=== PATIENT | male | born 1995 | race African-American/Black ===

== ENCOUNTER 2016-12-13 21:27 | Emergency (ER) | payer OTHER ==
[2016-12-13] MEDS ORDERED: ONDANSETRON 4MG/2ML VIAL (J2405) As Ordered ONE (22:18)
[2016-12-13] MEDS ORDERED: ONDANSETRON 4 MG ORAL DISINTEGRATING TAB (S0181) As Ordered ONE (23:14)
--- NOTE | 2016-12-13 23:26 | EDDOCDS ---
Nurse's Notes [facility] Name: Gustavo Ely Age: 21 yrs Sex: Male : 1995 Arrival Date: 12/13/2016 Time: 21:27 Bed 12 Private MD: GUILLERMINA REDDING Diagnosis: Other viral enteritis Presentation: 12/13 21:32 Presenting complaint: Patient states: diarrhea/vomiting since this evening after rs3 dinner. diarrhea x 7, vomiting x 3. Adult Sepsis Screening: The patient does not have new or worsening altered mentation. Patient's respiratory rate is less than 22. Systolic blood pressure is greater than 100. Patient has a qSOFA score of 0- Negative Sepsis Screen. Suicide/Homicide risk assessment- the patient denies having any suicidal and/or homicidal ideations and does not present with any other emotional, behavioral or mental health complaints. Status: The patient is a dependent. Transition of care: patient was not received from another setting of care. 21:32 Acuity: MARYLOU Level 3 rs3 21:32 Method Of Arrival: Walkin/Carried/Asstd rs3 Triage Assessment: 21:34 General: Appears in no apparent distress. Pain: Location: abdomen. Pt Declines HIV rs3 testing. GI: Reports diarrhea, nausea, vomiting. Historical: - Allergies: no known allergies; - Home Meds: 1. none - PMHx: none; - PSHx: none; - The history from nurses notes was reviewed: and I agree with what is documented. - Social history: Smoking status: Patient states was never smoker of tobacco. No barriers to communication noted, The patient speaks fluent Persian. - : The pt / caregiver states he / she is not on anticoagulants. Home medication list is obtained from the patient. - Hospitalizations: : No recent hospitalization is reported. - Exposure Risk Screening:: None identified. - Immunization history:: All immunizations up-to-date. - Family history: Not pertinent. - Social history:: the patient is a non-smoker, the patient does not drink alcohol. Screenin:46 Screening information is obtained from the patient. Fall risk: No risks identified. tm5 Assistance ADL's: requires no assistance with activities of daily living. Abuse/DV Screen: The patient / caregiver reports he/she is: not in a situation that causes fear, pain or injury. Nutritional screening: No deficits noted. Advance Directives: There is no active DNR order. home support is adequate. Assessment: 21:47 General: Appears in no apparent distress, Behavior is appropriate for age, cooperative. tm5 Pain: Location: abdomen Pain currently is 5 out of 10 on a pain scale. Quality of pain is described as crampy. Neurological: Level of Consciousness is awake, alert, Oriented to person, place, time. Respiratory: Airway is patent Respiratory effort is even, unlabored, Respiratory pattern is regular, symmetrical, Breath sounds are clear bilaterally. GI: Abdomen is flat, non- distended Stools are reported to be diarrhea. Bowel sounds present X 4 quads. Abd is soft and non tender X 4 quads. Reports diarrhea, nausea, vomiting, since after dinner tonight. : No deficits noted. Derm: Skin is pink, warm & dry. 23:22 Reassessment: Patient appears in no apparent distress at this time. Patient states tm5 feeling better. Patient states symptoms have improved. pt states that he is feeling much better after IV fluids & nausea medications . Vital Signs: 21:30 BP 122 / 57; Pulse 80; Resp 18; Temp 97.7(O); Pulse Ox 100% on R/A; Weight 74.84 kg ct3 (R); Height 5 ft. 10 in. (177.80 cm) (R); Pain 7/10; 23:22 BP 188 / 56; Pulse 78; Resp 18; Temp 98.0(O); Pulse Ox 98% on R/A; Pain 0/10; tm5 21:30 Body Mass Index 23.67 (74.84 kg, 177.80 cm) ct3 Vitals: 21:30 Log In Time: December 13, 2016 at 21:28. ct3 ED Course: 21:28 Patient visited by Hortencia Cano PCA. ct3 21:28 Patient moved to Waiting ct3 21:30 [facility], GUILLERMINA is Private Physician. ct3 21:30 Patient moved to Pre RCE ct3 21:34 Triage Initiated rs3 21:41 Patient moved to Triage 3 ar3 21:43 Jessi Lafleur,RN is Primary Nurse. ttb 21:43 Souleymane Baltazar MD is Attending Physician. pc 21:43 Patient moved to 12 ttb 21:46 Patient visited by Dayna Finley RN. tm5 21:47 Awaiting ED physician evaluation. tm5 22:01 Patient visited by Dayna Finley RN. tm5 22:05 ED physician to see patient. tm5 22:06 Patient visited by Souleymane Baltazar MD. pc 22:17 Inserted saline lock: 20 gauge in right antecubital area The patient tolerated the tm5 procedure well. 22:46 Primary Nurse role handed off by Jessi Lafleur RN ar3 22:53 Patient visited by Dayna Finley RN. tm5 23:04 [facility] is Referral Physician. pc 23:22 Patient visited by Dayna Finley RN. tm5 23:22 The patient / caregiver is instructed regarding the plan of care and ED course. tm5 23:22 Discontinued lock intact, bleeding controlled, pressure dressing applied, No tm5 redness/swelling at site. No procedures done that require assistance. Administered Medications: 22:21 Drug: NS 0.9% 1000 ml [sodium chloride 0.9 % intravenous solution] Route: IV; Rate: tm5 bolus; Site: right antecubital; 23:05 Follow up: IV Status: Completed infusion; IV Intake: 1000ml tm5 22:21 Drug: Ondansetron 4 mg [ondansetron HCl 2 mg/mL intravenous solution (2 mL)] Route: tm5 IVP; Site: right antecubital; 22:53 Follow up: Response: Nausea is resolved; No Adverse Reaction tm5 23:25 Drug: Ondansetron ODT 4 mg [ondansetron 4 mg disintegrating tablet (1 tabs)] {Note: tm5 provided to pt for at home use.} Route: PO; Intake: 23:05 IV: 1000.00ml; Total: 1000.00ml. tm5 Order Results: There are currently no results for this order. Outcome: 23:05 Discharge ordered by Provider. pc 23:22 Discharge Assessment: Patient awake, alert and oriented x 3. No cognitive and/or tm5 functional deficits noted. Patient verbalized understanding of disposition instructions. patient administered narcotics - no. The following High Risk Discharge criteria are identified: None. Discharged to home ambulatory. Condition: good Condition: stable Condition: improved. Discharge instructions given to patient, Instructed on discharge instructions, follow up and referral plans. medication usage, Demonstrated understanding of instructions, medications, Pt was receptive of discharge instructions/ teaching. Prescriptions given X 1. No special radiology studies were completed. Property :Personal belongings accompany Pt. 23:25 Patient left the ED. tm5 Signatures: Souleymane Baltazar MD MD pc Soosairaj, Rosemary,RN RN rs3 Jelena Olivera, SCOOP FILLER SCOOP FILLER ar3 Cano, Hortencia, SCOOP FILLER SCOOP FILLER ct3 Christina Quesada RN RN ttb Dayna FinleyRN RN tm5 MTDD
--- NOTE | 2016-12-13 23:26 | EDDOCDS ---
Physician Documentation [facility] Name: Gustavo Ely Age: 21 yrs Sex: Male : 1995 Arrival Date: 12/13/2016 Time: 21:27 Bed 12 Private MD: GUILLERMINA REDDING Disposition: 12/13 23:03 Critical Care: Critical care not applicable. pc Disposition: 12/13/16 23:05 Discharged to Home/Self Care. Impression: Other viral enteritis. - Condition is Stable. - Discharge Instructions: Clear Liquid Diet, Viral Gastroenteritis. - Prescriptions for ZOFRAN ODT 4 mg - dissolve 1 tablet by ORAL route 4 times per day As needed do not chew, do not swallow whole; 10 tablet. - Medication Reconciliation, Local Pharmacy Hours form. - Follow up: Judy Casillas [facility]; When: Tomorrow; Reason: Recheck today's complaints, Continuance of care. - Problem is new. - Symptoms have improved. HPI: 22:07 This 21 yrs old Male presents to ER via Walkin/Carried/Asstd with pc complaints of Diarrhea. 22:07 The history is obtained from the patient. He developed n/v/d about 3 hours ago. He is pc unable to keep anything down, has body aches but no fevers. He denies sick household contacts, denies suspect food ingestion, denies recent travel. The patient has not experienced similar symptoms in the past. The patient has not recently seen a physician. Historical: - Allergies: no known allergies; - Home Meds: 1. none - PMHx: none; - PSHx: none; - The history from nurses notes was reviewed: and I agree with what is documented. - Social history: Smoking status: Patient states was never smoker of tobacco. No barriers to communication noted, The patient speaks fluent Croatian. - : The pt / caregiver states he / she is not on anticoagulants. Home medication list is obtained from the patient. - Hospitalizations: : No recent hospitalization is reported. - Exposure Risk Screening:: None identified. - Immunization history:: All immunizations up-to-date. - Family history: Not pertinent. - Social history:: the patient is a non-smoker, the patient does not drink alcohol. ROS: 22:07 All systems are negative except as listed. pc Exam: 22:07 General Appearance: no acute distress, alert. pc 22:07 EENT: normal eye inspection, ears, nose and throat normal, mucous membranes dry. 22:07 Neck: The exam reveals no acute abnormalities. ROM is normal and painless. No nuchal rigidity is noted.. 22:07 Respiratory: no respiratory distress, normal breath sounds. 22:07 CVS: regular rhythm, normal S1 and S2, no murmurs, strong peripheral pulses, the patient is tachycardic, at 95 bpm. 22:07 Abdomen: soft, non-tender, no organomegaly, bowel sounds hyperactive. 22:07 Back: normal inspection. 22:07 : bladder is non-distended, non-tender. 22:07 Skin: skin color is normal, warm, dry. 22:07 Extremities: The extremities have a grossly normal appearance, are non-tender, without acute ROM abnormalities. 22:07 Neuro: oriented x 3, cranial nerves normal as tested, no motor deficits, no sensory deficits. 22:07 Psych: normal mood. Vital Signs: 21:30 BP 122 / 57; Pulse 80; Resp 18; Temp 97.7(O); Pulse Ox 100% on R/A; Weight 74.84 kg / ct3 164.99 lbs (R); Height 5 ft. 10 in. (177.80 cm) (R); Pain 7/10; 23:22 BP 188 / 56; Pulse 78; Resp 18; Temp 98.0(O); Pulse Ox 98% on R/A; Pain 0/10; tm5 21:30 Body Mass Index 23.67 (74.84 kg, 177.80 cm) ct3 MDM: 22:06 IV Saline Lock ordered. pc 22:06 NS 0.9% 1000 ml IV at bolus once ordered. pc 22:06 Ondansetron 4 mg IVP once ordered. pc 22:07 Differential Diagnosis: VGE, dehydration. Plan: IVF, meds. pc 23:03 Data reviewed: old medical records, vital signs, nurses notes. Test interpretation: pc none. The patient has been re-examined and re-evaluated. The patient's symptoms have markedly improved after treatment. Disposition: The historical points, examination findings, and any diagnostic results supporting the provided diagnosis, were discussed with the patient or legal guardian. The need for outpatient follow up with the provider listed on their discharge instructions was discussed. They were encouraged to return to [facility], or the nearest ED, if symptoms worsen/persist, or for any other questions/concerns. 23:05 Ondansetron ODT Oral Disintegrating Tablet 4 mg PO Per package directions; dispense 2 pc to go: 1 po q4h prn ordered. Administered Medications: 22:21 Drug: NS 0.9% 1000 ml [sodium chloride 0.9 % intravenous solution] Route: IV; Rate: tm5 bolus; Site: right antecubital; 23:05 Follow up: IV Status: Completed infusion; IV Intake: 1000ml tm5 22:21 Drug: Ondansetron 4 mg [ondansetron HCl 2 mg/mL intravenous solution (2 mL)] Route: tm5 IVP; Site: right antecubital; 22:53 Follow up: Response: Nausea is resolved; No Adverse Reaction tm5 23:25 Drug: Ondansetron ODT 4 mg [ondansetron 4 mg disintegrating tablet (1 tabs)] {Note: tm5 provided to pt for at home use.} Route: PO; Signatures: Souleymane Baltazar MD MD Ximena Trevino,RN RN rs3 Dayna Finley,RN RN tm5 RED
--- NOTE | 2016-12-16 00:26 | EDDOCDS ---
Nurse's Notes [facility] Name: Gustavo Ely Age: 21 yrs Sex: Male : 1995 Arrival Date: 12/13/2016 Time: 21:27 Bed 12 Private MD: GUILLERMINA REDDING Diagnosis: Other viral enteritis Presentation: 12/13 21:32 Presenting complaint: Patient states: diarrhea/vomiting since this evening after rs3 dinner. diarrhea x 7, vomiting x 3. Adult Sepsis Screening: The patient does not have new or worsening altered mentation. Patient's respiratory rate is less than 22. Systolic blood pressure is greater than 100. Patient has a qSOFA score of 0- Negative Sepsis Screen. Suicide/Homicide risk assessment- the patient denies having any suicidal and/or homicidal ideations and does not present with any other emotional, behavioral or mental health complaints. Status: The patient is a dependent. Transition of care: patient was not received from another setting of care. 21:32 Acuity: MARYLOU Level 3 rs3 21:32 Method Of Arrival: Walkin/Carried/Asstd rs3 Triage Assessment: 21:34 General: Appears in no apparent distress. Pain: Location: abdomen. Pt Declines HIV rs3 testing. GI: Reports diarrhea, nausea, vomiting. Historical: - Allergies: no known allergies; - Home Meds: 1. none - PMHx: none; - PSHx: none; - The history from nurses notes was reviewed: and I agree with what is documented. - Social history: Smoking status: Patient states was never smoker of tobacco. No barriers to communication noted, The patient speaks fluent German. - : The pt / caregiver states he / she is not on anticoagulants. Home medication list is obtained from the patient. - Hospitalizations: : No recent hospitalization is reported. - Exposure Risk Screening:: None identified. - Immunization history:: All immunizations up-to-date. - Family history: Not pertinent. - Social history:: the patient is a non-smoker, the patient does not drink alcohol. Screenin:46 Screening information is obtained from the patient. Fall risk: No risks identified. tm5 Assistance ADL's: requires no assistance with activities of daily living. Abuse/DV Screen: The patient / caregiver reports he/she is: not in a situation that causes fear, pain or injury. Nutritional screening: No deficits noted. Advance Directives: There is no active DNR order. home support is adequate. Assessment: 21:47 General: Appears in no apparent distress, Behavior is appropriate for age, cooperative. tm5 Pain: Location: abdomen Pain currently is 5 out of 10 on a pain scale. Quality of pain is described as crampy. Neurological: Level of Consciousness is awake, alert, Oriented to person, place, time. Respiratory: Airway is patent Respiratory effort is even, unlabored, Respiratory pattern is regular, symmetrical, Breath sounds are clear bilaterally. GI: Abdomen is flat, non- distended Stools are reported to be diarrhea. Bowel sounds present X 4 quads. Abd is soft and non tender X 4 quads. Reports diarrhea, nausea, vomiting, since after dinner tonight. : No deficits noted. Derm: Skin is pink, warm & dry. 23:22 Reassessment: Patient appears in no apparent distress at this time. Patient states tm5 feeling better. Patient states symptoms have improved. pt states that he is feeling much better after IV fluids & nausea medications . Vital Signs: 21:30 BP 122 / 57; Pulse 80; Resp 18; Temp 97.7(O); Pulse Ox 100% on R/A; Weight 74.84 kg ct3 (R); Height 5 ft. 10 in. (177.80 cm) (R); Pain 7/10; 23:22 BP 188 / 56; Pulse 78; Resp 18; Temp 98.0(O); Pulse Ox 98% on R/A; Pain 0/10; tm5 23:25 BP 140 / 65; Pulse 86; Resp 18; Temp 99.6(TE); Pulse Ox 99% on R/A; Pain 0/10; mdr 21:30 Body Mass Index 23.67 (74.84 kg, 177.80 cm) ct3 Vitals: 21:30 Log In Time: December 13, 2016 at 21:28. ct3 ED Course: 21:28 Patient visited by Hortencia Cano PCA. ct3 21:28 Patient moved to Waiting ct3 21:30 [facility], FTDRUM is Private Physician. ct3 21:30 Patient moved to Pre RCE ct3 21:34 Triage Initiated rs3 21:41 Patient moved to Triage 3 ar3 21:43 Jessi Lafleur,RN is Primary Nurse. ttb 21:43 Souleymane Baltazar MD is Attending Physician. pc 21:43 Patient moved to 12 ttb 21:46 Patient visited by Dayna Finley RN. tm5 21:47 Awaiting ED physician evaluation. tm5 22:01 Patient visited by Dayna Finley RN. tm5 22:05 ED physician to see patient. tm5 22:06 Patient visited by Souleymane Baltazar MD. pc 22:17 Inserted saline lock: 20 gauge in right antecubital area The patient tolerated the tm5 procedure well. 22:46 Primary Nurse role handed off by Jessi Lafleur RN ar3 22:53 Patient visited by Dayna Finley RN. tm5 23:04 [facility] pc 23:22 Patient visited by Dayna Finley RN. tm5 23:22 The patient / caregiver is instructed regarding the plan of care and ED course. tm5 23:22 Discontinued lock intact, bleeding controlled, pressure dressing applied, No tm5 redness/swelling at site. No procedures done that require assistance. 23:25 Patient visited by Sandor Ford PCA. mdr Administered Medications: 22:21 Drug: NS 0.9% 1000 ml [sodium chloride 0.9 % intravenous solution] Route: IV; Rate: tm5 bolus; Site: right antecubital; 23:05 Follow up: IV Status: Completed infusion; IV Intake: 1000ml tm5 22:21 Drug: Ondansetron 4 mg [ondansetron HCl 2 mg/mL intravenous solution (2 mL)] Route: tm5 IVP; Site: right antecubital; 22:53 Follow up: Response: Nausea is resolved; No Adverse Reaction tm5 23:25 Drug: Ondansetron ODT 4 mg [ondansetron 4 mg disintegrating tablet (1 tabs)] {Note: tm5 provided to pt for at home use.} Route: PO; Intake: 23:05 IV: 1000.00ml; Total: 1000.00ml. tm5 Order Results: There are currently no results for this order. Outcome: 23:05 Discharge ordered by Provider. pc 23:22 Discharge Assessment: Patient awake, alert and oriented x 3. No cognitive and/or tm5 functional deficits noted. Patient verbalized understanding of disposition instructions. patient administered narcotics - no. The following High Risk Discharge criteria are identified: None. Discharged to home ambulatory. Condition: good Condition: stable Condition: improved. Discharge instructions given to patient, Instructed on discharge instructions, follow up and referral plans. medication usage, Demonstrated understanding of instructions, medications, Pt was receptive of discharge instructions/ teaching. Prescriptions given X 1. No special radiology studies were completed. Property :Personal belongings accompany Pt. 23:25 Patient left the ED. tm5 Signatures: Souleymane Baltazar MD MD pc Soosairaj, Rosemary,RN RN rs3 Jelena Olivera, NAME PLATE STAMPER NAME PLATE STAMPER ar3 Hortencia Cano, NAME PLATE STAMPER NAME PLATE STAMPER ct3 Christina Quesada, RN RN ttb Sandor Ford, NAME PLATE STAMPER NAME PLATE STAMPER Dayna Brown,RN RN tm5 Chart Complete MTDD
--- NOTE | 2016-12-16 00:26 | EDDOCDS ---
Physician Documentation [facility] Name: Gustavo Ely Age: 21 yrs Sex: Male : 1995 Arrival Date: 12/13/2016 Time: 21:27 Bed 12 Private MD: GUILLERMINA REDDING Disposition: 12/13 23:03 Critical Care: Critical care not applicable. pc Disposition: 12/13/16 23:05 Discharged to Home/Self Care. Impression: Other viral enteritis. - Condition is Stable. - Discharge Instructions: Clear Liquid Diet, Viral Gastroenteritis. - Prescriptions for ZOFRAN ODT 4 mg - dissolve 1 tablet by ORAL route 4 times per day As needed do not chew, do not swallow whole; 10 tablet. - Medication Reconciliation, Local Pharmacy Hours form. - Follow up: Judy Casillas [facility]; When: Tomorrow; Reason: Recheck today's complaints, Continuance of care. - Problem is new. - Symptoms have improved. HPI: 22:07 This 21 yrs old Male presents to ER via Walkin/Carried/Asstd with pc complaints of Diarrhea. 22:07 The history is obtained from the patient. He developed n/v/d about 3 hours ago. He is pc unable to keep anything down, has body aches but no fevers. He denies sick household contacts, denies suspect food ingestion, denies recent travel. The patient has not experienced similar symptoms in the past. The patient has not recently seen a physician. Historical: - Allergies: no known allergies; - Home Meds: 1. none - PMHx: none; - PSHx: none; - The history from nurses notes was reviewed: and I agree with what is documented. - Social history: Smoking status: Patient states was never smoker of tobacco. No barriers to communication noted, The patient speaks fluent Surinamese. - : The pt / caregiver states he / she is not on anticoagulants. Home medication list is obtained from the patient. - Hospitalizations: : No recent hospitalization is reported. - Exposure Risk Screening:: None identified. - Immunization history:: All immunizations up-to-date. - Family history: Not pertinent. - Social history:: the patient is a non-smoker, the patient does not drink alcohol. ROS: 22:07 All systems are negative except as listed. pc Exam: 22:07 General Appearance: no acute distress, alert. pc 22:07 EENT: normal eye inspection, ears, nose and throat normal, mucous membranes dry. 22:07 Neck: The exam reveals no acute abnormalities. ROM is normal and painless. No nuchal rigidity is noted.. 22:07 Respiratory: no respiratory distress, normal breath sounds. 22:07 CVS: regular rhythm, normal S1 and S2, no murmurs, strong peripheral pulses, the patient is tachycardic, at 95 bpm. 22:07 Abdomen: soft, non-tender, no organomegaly, bowel sounds hyperactive. 22:07 Back: normal inspection. 22:07 : bladder is non-distended, non-tender. 22:07 Skin: skin color is normal, warm, dry. 22:07 Extremities: The extremities have a grossly normal appearance, are non-tender, without acute ROM abnormalities. 22:07 Neuro: oriented x 3, cranial nerves normal as tested, no motor deficits, no sensory deficits. 22:07 Psych: normal mood. Vital Signs: 21:30 BP 122 / 57; Pulse 80; Resp 18; Temp 97.7(O); Pulse Ox 100% on R/A; Weight 74.84 kg / ct3 164.99 lbs (R); Height 5 ft. 10 in. (177.80 cm) (R); Pain 7/10; 23:22 BP 188 / 56; Pulse 78; Resp 18; Temp 98.0(O); Pulse Ox 98% on R/A; Pain 0/10; tm5 23:25 BP 140 / 65; Pulse 86; Resp 18; Temp 99.6(TE); Pulse Ox 99% on R/A; Pain 0/10; mdr 21:30 Body Mass Index 23.67 (74.84 kg, 177.80 cm) ct3 MDM: 22:06 IV Saline Lock ordered. pc 22:06 NS 0.9% 1000 ml IV at bolus once ordered. pc 22:06 Ondansetron 4 mg IVP once ordered. pc 22:07 Differential Diagnosis: VGE, dehydration. Plan: IVF, meds. pc 23:03 Data reviewed: old medical records, vital signs, nurses notes. Test interpretation: pc none. The patient has been re-examined and re-evaluated. The patient's symptoms have markedly improved after treatment. Disposition: The historical points, examination findings, and any diagnostic results supporting the provided diagnosis, were discussed with the patient or legal guardian. The need for outpatient follow up with the provider listed on their discharge instructions was discussed. They were encouraged to return to [facility], or the nearest ED, if symptoms worsen/persist, or for any other questions/concerns. 23:05 Ondansetron ODT Oral Disintegrating Tablet 4 mg PO Per package directions; dispense 2 pc to go: 1 po q4h prn ordered. Administered Medications: 22:21 Drug: NS 0.9% 1000 ml [sodium chloride 0.9 % intravenous solution] Route: IV; Rate: tm5 bolus; Site: right antecubital; 23:05 Follow up: IV Status: Completed infusion; IV Intake: 1000ml tm5 22:21 Drug: Ondansetron 4 mg [ondansetron HCl 2 mg/mL intravenous solution (2 mL)] Route: tm5 IVP; Site: right antecubital; 22:53 Follow up: Response: Nausea is resolved; No Adverse Reaction tm5 23:25 Drug: Ondansetron ODT 4 mg [ondansetron 4 mg disintegrating tablet (1 tabs)] {Note: tm5 provided to pt for at home use.} Route: PO; Signatures: Souleymane Baltazar MD MD pc Soosairaj, Rosemary, RN RN rs3 Dayna Finley RN RN tm5 Chart Complete MTDD
== END 2016-12-13 23:25 | disposition home or self-care (01) ==
LOC: M ED 21:27
DX: B08.4 Enteroviral vesicular stomatitis with exanthem (principal)
CPT/HCPCS: 96361; 96374; 99283; J2405

== ENCOUNTER 2017-08-23 22:18 | Inpatient (IN) | payer OTHER ==
[~2017-08-23] VITALS: Ht 175.3 cm; Wt 74.0 kg
[2017-08-23 23:29] LABS: MEAN CORPUSCULAR HGB CONC 30.9 g/dl (32.0-36.5); PLATELET COUNT, AUTOMATED 151 10^3/uL (150-450); RED CELL DISTRIBUTION WIDTH 14.5 % (11.5-14.5); WHITE BLOOD COUNT 7.2 10^3/uL (4.0-10.0)
[2017-08-23 23:31] LABS: MEAN CORPUSCULAR VOLUME 71.1 fl (80.0-96.0)
[2017-08-23 23:54] LABS: METHADONE URINE NEGATIVE (NEGATIVE)
[2017-08-24 00:04] LABS: ALBUMIN 4.5 GM/DL (3.2-5.2); ALBUMIN/GLOBULIN RATIO 1.29 (1.00-1.93); ALKALINE PHOSPHATASE 64 U/L (45-117); ALT/SGPT 27 U/L (12-78); ANION GAP 8 MEQ/L (8-16); AST/SGOT 15 U/L (15-37); BILIRUBIN,DIRECT 0.1 MG/DL (0.0-0.2); BILIRUBIN,TOTAL 0.6 MG/DL (0.2-1.0); BLOOD UREA NITROGEN 11 MG/DL (7-18); CALCIUM LEVEL 9.4 MG/DL (8.5-10.1); CARBON DIOXIDE LEVEL 27 MEQ/L (21-32); CHLORIDE LEVEL 103 MEQ/L (98-107); CREATININE FOR GFR 0.98 MG/DL (0.70-1.30); GLOMERULAR FILTRATION RATE > 60.0 (>60); GLUCOSE, FASTING 76 MG/DL (70-105); POTASSIUM SERUM 3.9 MEQ/L (3.5-5.1); SODIUM LEVEL 138 MEQ/L (136-145)
[2017-08-24] MEDS ORDERED: MOM 30ML SUSPENSION UDC PO PRN (03:00)
[2017-08-24] MEDS ORDERED: MAALOX 30 ML SUSP *UDC PO PRN (03:00)
[2017-08-24] MEDS ORDERED: ACETAMINOPHEN TAB 650MG DOSE (2X325MG) PO PRN (03:00)
[2017-08-24] MEDS ORDERED: traZODone 50 MG TAB PO PRN (03:00)
[2017-08-24 03:35] VITALS: BP 132/86
[2017-08-24] MEDS ORDERED: SERT25TA PO (04:37)
--- NOTE | 2017-08-24 09:55 | HPEPDOC ---
[facility] Medical History & Physical Date of Admission Aug 23, 2017 History and Physical PCP: [facility] ATTENDING: Dr. Rashad Parsons HPI: 22yoM admitted to [facility] for unspecified depressive disorder, being medically examined today. No acute medical complaints today. Denies any fevers, chills, weakness, fatigue, BOO, CP, SOB, cough, palpitations, abdominal pain, N/V /D or changes in bowel or bladder habits. PMHx: Anxiety Depression PSHX: Denies SOCHX: Resides in: [facility], from [facility]. Marital Status: Single Kids: None Employment: Active duty Tobacco use: Denies ETOH: Denies Illicit Drugs: Denies IV Drug Use: Denies Tattoos done unprofessionally: Denies FAMHX: Mother: Alive, well Father: Alive, diabetes Siblings: 2 brothers, 2 sisters Alive, well Children: None Unexpected deaths due to medical reasons: None. ROS: As noted in HPI, otherwise 11pt ROS of systems reviewed and unremarkable. PE: GEN: 22 yo M, appears stated age. Well-nourished, well developed. No acute distress. Alert and oriented x 3. Pleasant, interactive. HEENT: Normocephalic, atraumatic. Pupils are equal, round, and reactive to light. Extraocular movements are intact. No nystagmus appreciated. Sclera are nonicteric. Conjunctiva without injection. Nose midline. Nasal turbinates without bogginess. EACs both patent BL. TMs both visualized and eirc with good cone of light, no bulging or erythema. No facial asymmetry. Moist mucous membranes. Dentition fair. Pharynx pink and moist, no cobblestoning. Neck supple , trachea midline. No lymphadenopathy or thyromegaly appreciated. CHEST: Regular rate and rhythm, +S1, +S2 LUNGS: Clear to auscultation bilaterally. No wheezes, rales, or rhonchi. Breathing appears symmetric and easy. Patient is speaking in full sentences. No accessory muscle use. ABD: Round, soft, non-tender, non-distended. +Bowel sounds throughout. No rebound or guarding. No costovertebral angle tenderness. EXT: Pulses 2+ bilaterally dorsalis pedis and radial. No lower extremity edema appreciated. SKIN: Seat Pleasant, dry, warm. Capillary refill <2sec. No rashes. NEURO: Alert and oriented x 3. Cranial nerves III-XII are intact. No focal deficits appreciated. EKG: Pending A&P: 22yoM admitted to [facility] for unspecified depressive disorder 1. Psych. Plan per Psychiatry. Obtain baseline EKG to assure the safety of psychiatric medications as they can prolong the QT interval. 2. Microcytosis. Appears to be chronic. Hgb WNL. Check Fe studies. Recheck CBC in AM. Consider peripheral smear. 3. Follow up with PCP on discharge. 4. Substance use. Per psychiatry. 5. Staff member Herbert present throughout exam. Vital Signs Vital Signs Date Time Temp Pulse Resp B/P (MAP) Pulse Ox O2 Delivery O2 Flow Rate FiO2 08/24/17 03:35 97.9 53 18 132/86 (101) Room Air 08/24/17 03:20 99 Laboratory Data Labs 24H Laboratory Tests 2 08/23/17 23:11: Nucleated Red Blood Cells % (auto) 0.0, Anion Gap 8, Glomerular Filtration Rate > 60.0, Calcium Level 9.4, Aspartate Amino Transf (AST/SGOT) 15, Alanine Aminotransferase (ALT/SGPT) 27, Alkaline Phosphatase 64, Total Bilirubin 0.6, Direct Bilirubin 0.1, Total Protein 8.0, Albumin 4.5, Albumin/Globulin Ratio 1.29, Thyroid Stimulating Hormone (TSH) 1.780, Salicylates Level < 1.7L, Urine Amphetamines Screen NEGATIVE, Urine Benzodiazepines Screen NEGATIVE, Urine Opiates Screen NEGATIVE, Urine Methadone Screen NEGATIVE, Acetaminophen Level < 2.0L, Urine Barbiturates Screen NEGATIVE, Urine Phencyclidine Screen NEGATIVE, Urine Cocaine Metabolite Screen NEGATIVE, Urine Cannabinoids Screen POSITIVEH, Ethyl Alcohol Level < 0.003 CBC/BMP Laboratory Tests 08/23/17 23:11 Red Blood Count 6.37 H, Mean Corpuscular Volume 71.1 L, Mean Corpuscular Hemoglobin 22.0 L, Mean Corpuscular Hemoglobin Concent 30.9 L, Red Cell Distribution Width 14.5 Home Medications Scheduled Sertraline Hcl (Sertraline HCl) 25 Mg Tab, 25 MG PO QHS for DEPRESSION Allergies Coded Allergies: No Known Allergies (Unverified , 08/23/17) Melanie Reeves Aug 24, 2017 09:55
[2017-08-24 11:26] LABS: PERCENT SATURATION 44.5 % (19.7-50.0)
[2017-08-24 11:47] LABS: FOLATE 9.2 NG/ML (>5.4)
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
[2017-08-24] MEDS ORDERED: hydrOXYzine 25 MG TAB PO PRN (14:00)
[2017-08-24 18:00] VITALS: BP 130/59
[2017-08-24] MEDS: SERTRALINE HCL 50 MG TAB PO SCH (20:47)
[2017-08-24] MEDS: traZODone 25MG PER 1/2 TABLET PO PRN (20:47)
[2017-08-25 06:46] VITALS: BP 132/63
[2017-08-25 07:35] LABS: MEAN CORPUSCULAR HEMOGLOBIN 22.1 pg (27.0-33.0); MEAN CORPUSCULAR HGB CONC 30.9 g/dl (32.0-36.5); PLATELET COUNT, AUTOMATED 165 10^3/uL (150-450); RED CELL DISTRIBUTION WIDTH 14.5 % (11.5-14.5); WHITE BLOOD COUNT 4.3 10^3/uL (4.0-10.0)
[2017-08-25 07:39] LABS: MEAN CORPUSCULAR VOLUME 71.7 fl (80.0-96.0)
--- NOTE | 2017-08-25 08:16 | MHIPNPDOC ---
[facility] Progress Note Progress Note DATE OF SERVICE: 08/25/17 HISTORY: day 2 of admission for depression/anxiety suicidal statement without plan or intent. VITAL SIGNS: See below. NEW TEST RESULTS: NA CURRENT MEDICATIONS: See below. MENTAL STATUS EXAMINATION: General appearance: Patient is a 22-year old male, who is average height, , well groomed, dressed in hospital attire, cooperative, very polite. Speech: spontaneous, clear. Thought processes: goal directed Thought content: appropriate Abstract reasoning and computation: good Description of associations: good Description of abnormal or psychotic thoughts: none Judgment: good Insight: good. Orientation: well oriented in all spheres. Recent and remote memory: intact. Attention span and concentration: good. Fund of knowledge: Full. Mood: "anxious" Affect: congruent. DIAGNOSES: 1. adjustment disorder with anxious mood. 2. substance use disorder ASSESSMENT:met with pt this a.m. and encouraged him to shower and get ready for a.m programming. He asked if he was leaving tomorrow. Advised that [facility] has not given us a date for our meeting yet but we would strive for that as he is no longer feeling suicidal. He is ready for the decision of the [employer] about his status. He reports good sleep last night. Slept through breakfast today. No side effects reported to meds. Observed in group and visible on the unit. Anxious to leave. Updated info: NNAMDI scheduled for tomorrow at 11. Anticipate discharge will follow. MANAGEMENT PLAN: given sertraline at hs to assist with sleep. he made use of the trazodone last night. has not dosed the hydroxyzine as of yet. TIME SPENT: 25 minutes. Vital Signs Vital Signs Date Time Temp Pulse Resp B/P (MAP) Pulse Ox O2 Delivery O2 Flow Rate FiO2 08/25/17 06:46 98.2 68 18 132/63 (86) 08/24/17 03:35 Room Air 08/24/17 03:20 99 Laboratory Data 24H Labs Laboratory Tests 2 08/24/17 10:14: Iron Level 147, Total Iron Binding Capacity 330, Transferrin % Saturation 44.5, Ferritin 58, Vitamin B12 Level 728, Folate 9.2 08/25/17 07:08: Nucleated Red Blood Cells % (auto) 0.0 CBC/BMP Laboratory Tests 08/25/17 07:08 Red Blood Count 6.28 H, Mean Corpuscular Volume 71.7 L, Mean Corpuscular Hemoglobin 22.1 L, Mean Corpuscular Hemoglobin Concent 30.9 L, Red Cell Distribution Width 14.5 Current Medications Current Medications Acetaminophen (Tylenol Tab) 650 mg Q6HP PRN PO HEADACHE or DISCOMFORT; Start 08/24/17 at 03:00; Stop 09/23/17 at 02:59 Al Hydrox/Mg Hydrox/Simethicone (Mylanta) 30 ml Q4HP PRN PO HEARTBURN/ INDIGESTION; Start 08/24/17 at 03:00; Stop 09/23/17 at 02:59 Home Med (Med Rec Complete!) ASDIRECTED XX ; Start 08/24/17 at 04:45; Stop at 04:45; Status DC Hydroxyzine HCl (Atarax) 25 mg Q6HP PRN PO ANXIETY; Start 08/24/17 at 14:00; Stop 09/23/17 at 13:59 Magnesium Hydroxide (Milk Of Magnesia) 30 ml DAILYPRN PRN PO CONSTIPATION; Start 08/24/17 at 03:00; Stop 09/23/17 at 02:59 Sertraline HCl (Zoloft) 50 mg QHS PO Last administered on 08/24/17 20:47; Start 08/24/17 at 21:00; Stop 09/23/17 at 20:59 Trazodone HCl (Desyrel) 25 mg QHSP PRN PO INSOMNIA Last administered on 20:47; Start 08/24/17 at 14:00; Stop 09/23/17 at 13:59 Trazodone HCl (Desyrel) 50 mg QHSP PRN PO INSOMNIA; Start 08/24/17 at 03:00; Stop 08/24/17 at 13:51; Status DC Allergies Coded Allergies: No Known Allergies (Unverified , 08/23/17) Parul Duque Aug 25, 2017 08:16
[2017-08-25 09:49] LABS: REASON FOR REVIEW COMPREHENSIVE REVIEW
[2017-08-25 18:00] VITALS: BP 120/77
--- NOTE | 2017-08-25 20:52 | ECGEPIP ---
Stationary ECG Study [facility] Test Date: 2017-08-24 Pat Name: GALLITO YOUNG Department: Room: [place] [address] Gender: M [employer] Teacher: : 1995 Requested By: Melanie Reeves Order Number: [id number] Reading MD: Sunday Davis Measurements Intervals [place] Rate: 57 P: 45 RI: 206 QRS: 85 QRSD: 100 T: 41 QT: 378 QTc: 371 Interpretive Statements SINUS BRADYCARDIA Normal Electronically Signed On 08-25-2017 20:52:33 EDT by Sunday Davis
[2017-08-25] MEDS: traZODone 25MG PER 1/2 TABLET PO PRN (21:30)
[2017-08-25] MEDS: SERTRALINE HCL 50 MG TAB PO SCH (21:30)
[2017-08-26 07:27] VITALS: BP 127/65
[2017-08-26] MEDS ORDERED: SERT50TA PO (07:48)
[2017-08-26] MEDS ORDERED: HYDR-3363 PO (07:48)
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
== END 2017-08-26 12:00 | disposition home or self-care (01) | DRG 882 ==
LOC: M ED 22:18 → M ED INP 08-24 02:50 → M PSY 08-24 03:30
PROVIDERS: ADMIT Psychiatry & Neurology Psychiatry; ATTEND Psychiatry & Neurology Psychiatry
DX: F43.22 Adjustment disorder with anxiety (principal); F19.10 Other psychoactive substance abuse, uncomplicated; Z79.899 Other long term (current) drug therapy; R71.8 Other abnormality of red blood cells

== ENCOUNTER 2017-12-10 21:36 | Emergency (ER) | payer OTHER | END 2017-12-11 01:07 | disposition left against medical advice (07) | LOC: M ED 21:36 | DX: Z53.29 Procedure and treatment not carried out because of patient's decision for other reasons (principal) ==